=== PATIENT | male | born 1990 ===

== ENCOUNTER 2019-09-27 20:24 | Emergency (ER) | payer OTHER ==
[2019-09-27 20:30] VITALS: BP 110/72
--- NOTE | 2019-09-27 21:50 | ED ---
HPI Febrile Illness - HPI Summary HPI Summary: Patient is a 29 y/o M presenting to [facility] accompanied by with a chief complaint of fevers since yesterday. He reports that he woke up that morning feeling unwell with fatigue and neck stiffness that has since resolved. He continued fe which has since continued along with diffuse myalgias. Yesterday he went to [facility] and was told he had flu-like symptoms but did not have a flu test performed. He continued to take Tylenol, Nyquil, and Paracetamol throughout the night and today but his fevers have persisted at 101-103.6F with only mild relief for about an hour before returning. His last does of Tylenol was taken at 2030 tonight. He denies any changes in appetite, abdominal pain, nausea, vomiting, sore throat, or cough. He is not currently in any pain. Temp afebrile in triage. No PMHx. Nonsmoker, occasional EtOH, no substance use. Medications reviewed. Allergies noted. - History of Current Complaint Chief Complaint: EDFever Time Seen by Provider: 09/27/19 21:24 Hx Obtained From: Patient Onset/Duration: Started Days Ago, Still Present Timing: Intermittent, Lasting Hours Temperature: 103 F Initial Severity: Moderate Current Severity: Mild Pain Intensity: 0 Pain Scale Used: 0-10 Numeric Aggravating Factors: Nothing Alleviating Factors: Nothing Associated Signs and Symptoms: Myalgia - diffuse, Stiff Neck - resolved, Other: - fatiuge; Negative: changes in appetite, abdominal pain, nausea, vomiting, sore throat, cough - Allergy/Home Medications Allergies/Adverse Reactions: Allergies Allergy/AdvReac Type Severity Reaction Status Date / Time No Known Allergies Allergy Verified 09/27/19 20:29 PMH/Surg Hx/FS Hx/Imm Hx Endocrine/Hematology History: Denies: Hx Diabetes Respiratory History: Denies: Hx Asthma Sensory History: Denies: Hx Legally Blind, Hx Deafness Opthamlomology History: Denies: Hx Legally Blind EENT History: Denies: Hx Deafness - Surgical History Surgical History: None Surgery Procedure, Year, and Place: none - Immunization History Immunizations Up to Date: Yes Infectious Disease History: No Infectious Disease History: Denies: Traveled Outside the [place] in Last 30 Days - Family History Known Family History: Negative: Cardiac Disease, Hypertension, Diabetes - Social History Alcohol Use: Occasionally Hx Substance Use: No Substance Use Type: Reports: None Hx Tobacco Use: No Smoking Status (MU): Never Smoked Tobacco - Additional Comments History Additional Comments: no pertinent past medical history Review of Systems - ROS Summary Review of Systems Summary: No home medications. Positive: Fever, Fatigue Negative: Sore Throat Negative: Cough Negative: Abdominal Pain, Diarrhea, Nausea, Other - change in appetite Positive: Myalgia, Other - neck stiffness (resolved) All Other Systems Reviewed And Are Negative: Yes Physical Exam - Summary Physical Exam Summary: General: Well-developed, Well-nourished male. Mildly ill-appearing. No acute distress. HEENT: Normocephalic, Atraumatic. Eyes: Conjuctiva normal, PERRL. Oropharynx: Clear, mucous membranes moist, (-) exudates. Neck: Soft, FROM, (-) lymphadenopathy, (-) thyromegaly, (-) JVD. Cardiovascular: Normal sinus rhythm, (-) murmur. Lungs: Clear to auscultation bilaterally (-) wheezes, (-) rales, (-) rhonchi. Abdomen: Soft, non-tender, non-distended, (-) organomegaly, normal bowel sounds. Back: (-) CVA tenderness Extremities: No edema. Skin: Warm, dry, (-) rash. Neuro: Alert and oriented x3, moves all extremities equally. No ataxia. No gait disturbance. No sensory deficit. Normal strength, normal sensation. Psychiatric: Mood normal, affect normal. Triage Information Reviewed: Yes Vital Signs On Initial Exam: Initial Vitals Temp Pulse Resp BP Pulse Ox 98.8 F 111 20 110/72 95 09/27/19 20:26 09/27/19 20:26 09/27/19 20:26 09/27/19 20:26 09/27/19 20:26 Vital Signs Reviewed: Yes Procedures - Sedation Patient Received Moderate/Deep Sedation with Procedure: No Diagnostics - Vital Signs Vital Signs Temp Pulse Resp BP Pulse Ox 09/27/19 20:26 98.8 F 111 20 110/72 95 - Laboratory Lab Statement: Any lab studies that have been ordered have been reviewed, and results considered in the medical decision making process. Re-Evaluation - Re-Evaluation First Eval Re-Evaluation Time: 23:00 Change: Improved Comment: I discussed all results. Discussed all symptoms that warrant return to the ED. Course/Dx - Course Course Of Treatment: 29-year-old male presents from home by private vehicle with fever. He states he's been sick since the weekend. With general malaise. Started with high fever 2 nights ago. Has been taking Tylenol and paracetamol. States his fever will come down briefly and then spiked up again. His states his fever has been as high as 103 last night. Denies any nausea vomiting. No sore throat. No cough, chest pain, shortness of breath. No diarrhea. States his been eating and drinking fine. Not sleeping well. Achy muscles. 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 States he went to urgent care yesterday and was told he had flulike symptoms. No testing no medications. On physical exam he has no significant findings. Flu swabs are negative. Patient given ibuprofen with improvement in his symptoms. Patient encouraged to rest. Ibuprofen 3 times a day with food. Plenty of fluids. Off work until Wednesday. Follow-up with PCP. Follow up sooner for any worsening symptoms. - Diagnoses Provider Diagnoses: Viral syndrome Discharge ED - Sign-Out/Discharge Documenting (check all that apply): Patient Departure - discharge - Discharge Plan Condition: Stable Disposition: HOME Patient Education Materials: Viral Syndrome (ED) Forms: *Work Release Referrals: Rob Baltazar MD [Primary Care Provider] - 3 Days Additional Instructions: Continue taking Tylenol and Ibuprofen for your fever. Follow up with your primary care provider in 2-3 days. Return to the emergency department for any new or worsening symptoms. - Billing Disposition and Condition Condition: STABLE Disposition: Home - Attestation Statements Document Initiated by Tyler: Yes Documenting Scribe: Jyothi Farrell Provider For Whom Tyler is Documenting (Include Credential): Jo Rosado MD Scribe Attestation: Jyothi Alfonso, scribed for Jo Rosado MD on 09/27/19 at 2311. Scribe Documentation Reviewed: Yes Provider Attestation: The documentation as recorded by the Jyothi martinez accurately reflects the service I personally performed and the decisions made by me, Jo Rosado MD Status of Scribe Document: Viewed
[2019-09-27] MEDS ORDERED: Ibuprofen TAB* 400 MG PO ONE (22:19)
[2019-09-27 22:43] LABS: Influenza A Molecular Negative (Negative); Influenza B Molecular Negative (Negative)
== END 2019-09-27 23:02 | disposition home or self-care (01) ==
LOC: ED 20:24
DX: B34.9 Viral infection, unspecified (principal); R50.9 Fever, unspecified
CPT/HCPCS: 99282; A9270-GY